=== PATIENT | male | born 1990 | race Two or more races ===

== ENCOUNTER → 2020-11-27 15:02 | Outpatient (CLI) | payer OTHER | END | disposition home or self-care (01) | LOC: LAB 15:02 | PROVIDERS: ATTEND Pediatrics Neonatal-Perinatal Medicine | DX: Z20.828 Contact with and (suspected) exposure to other viral communicable diseases (principal) ==

== ENCOUNTER 2024-02-15 18:44 | Emergency (ER) | payer OTHER ==
[~2024-02-15] VITALS: Ht 180.3 cm; Wt 82.6 kg
[~2024-02-15 18:44] MED LIST: HUMALOG100 UNIT/2 SQ; URSODIOL250 MG PO; ZESTRIL10 M1 PO
[2024-02-15] MEDS ORDERED: CEFTRIAXONE SODIUM 1,000 MG VIAL IM ONE (20:15)
[2024-02-15] MEDS ORDERED: KETOROLAC TROMETHAMINE 30 MG VIAL IM ONE (20:15)
[2024-02-15] MEDS ORDERED: DUI500 PO (20:24)
== END 2024-02-15 20:48 ==
LOC: ER 18:45
DX: L03.116 Cellulitis of left lower limb (principal); R21 Rash and other nonspecific skin eruption; E11.9 Type 2 diabetes mellitus without complications; Z79.4 Long term (current) use of insulin